=== PATIENT | female | born 1980 | race Caucasian/White ===

== ENCOUNTER → 2017-03-27 | Outpatient (CLI) | payer OTHER ==
[~2017-03-27] MED LIST: OMNIPAQUE 350 MG/ML, 100ML BOTTLE ONE
== END | disposition home or self-care (01) ==
LOC: CFH 13:21
PROVIDERS: ATTEND Family Medicine
DX: K76.89 Other specified diseases of liver (principal); F17.203 Nicotine dependence unspecified, with withdrawal; Z97.5 Presence of (intrauterine) contraceptive device
CPT/HCPCS: 74177; Q9967